=== PATIENT | female | born 1975 | race Two or more races ===

== ENCOUNTER 2023-03-10 10:15 | Emergency (ER) | payer OTHER, SELFPAY ==
[2023-03-10 10:38] VITALS: BP 135/78; PULSE 103; RESP 20; TEMP 36.4; O2SAT 99; BMI 34.3
--- NOTE | 2023-03-10 12:52 | ED.EXTPRO ---
HPI - Extremity Problem General Chief complaint: Extremity Injury, Upper Stated complaint: Flu Like Symptoms Time Seen by Provider: 03/10/23 11:59 Source: patient and family Mode of arrival: ambulatory Limitations: no limitations History of Present Illness HPI Narrative: ?This is a 47-year-old female history of obesity presenting to the emergency department with complaints of fatigue, malaise, sore throat, myalgias, nausea, diffuse headache without visual disturbances, trauma, dizziness, dry cough x4 days progressively worsening.? Significant other sick with similar symptoms.? Denies chest pain, shortness of breath, vomiting, diarrhea, abdominal pain, weakness, dizziness at this time. Related Data Previous Rx's Medication Instructions Recorded albuterol sulfate 90 mcg/actuation 2 inh inhalation Q4-6H PRN 03/10/23 breath activated powder inhaler shortness of breath or wheezing #1 ea prednisone 20 mg tablet 40 mg (2 x 20 mg) PO DAILY 5 days 03/10/23 #10 tabs Allergies Allergy/AdvReac Type Severity Reaction Status Date / Time shellfish derived Allergy Anaphylaxis Verified 03/10/23 10:40 Review of Systems Review of Systems: Yes all other systems are reviewed and are negative PMFSH Past Medical History Attestation statement: The following information was validated with the patient. Source: old records reviewed and nursing notes reviewed Onset Date is defined in the Problem List Problems that require an onset date and time if occurred within 24 hrs of arrival to the ED Aortic Dissection and Rupture; Neurologic impairment; Cardiopulmonary Arrest; Endotracheal Intubation; Insertion or Replacement of Mechanical Circulatory Assist Device Social History Social History Advance Directives: No Advance Directives Information Provided: No Physical Exam Vital Signs: Vital Signs: Last Vital Signs Temp 97.5 F 03/10/23 10:38 Pulse 103 H 03/10/23 10:38 Resp 20 03/10/23 10:38 BP 135/78 03/10/23 10:38 Pulse Ox 99 03/10/23 10:38 O2 Del Method Room Air 03/10/23 10:38 BMI result Body Mass Index 34.3 vss Appearance: Alert.? Oriented X3.? No acute distress.? Head: Normocephalic, atraumatic, no step-offs or deformities Eyes: Pupils equal, round and reactive to light.? ENT: Pharynx normal.? Neck: Normal inspection.? Neck supple.? CVS: Normal heart rate and rhythm.? Pulses normal.? Respiratory: No respiratory distress.? Breath sounds normal.? Abdomen: Soft and nontender.? Skin: Skin warm and dry.? Normal skin color.? Normal skin turgor.? Extremities: No lower extremity edema.? No calf ttp. 5/5 strength to bilateral upper and lower extremities Neuro: Oriented X 3.? No motor deficit.? No sensory deficit. CN 2-12 intact Course Reevaluation(s) Reevaluation #1: Patient negative for flu versus COVID versus RSV however his symptoms highly suggestive of viral illness. Will discharge with supportive measures, prednisone and albuterol. Educated patient on diagnosis and treatment plan, answered all question, patient verbalizes understanding. At this time patient will be discharged home, advised to return with new or worsening symptoms. Educated on worrisome signs and symptoms and when to return. At this time I feel comfortable discharge home. Time: 12:54 Medical Decision Making Medical Decision Making [facility] Narrative: 47-year-old female presents with viral symptoms for the past 4 days. ??Physical examination benign ?This is likely viral flu versus COVID versus RSV versus bronchitis.? Unlikely pulmonary embolism, pneumonia, ACS, retropharyngeal abscess, peritonsillar abscess, epiglottitis, intracranial hemorrhage, stroke, posterior stroke, meningitis or encephalitis.? No signs of acute respiratory distress ?Plan viral testing Differential Diagnosis Differential Diagnoses: The differential diagnosis associated with the presentation includes ?This is likely viral flu versus COVID versus RSV versus bronchitis.? Unlikely pulmonary embolism, pneumonia, ACS, retropharyngeal abscess, peritonsillar abscess, epiglottitis, intracranial hemorrhage, stroke, posterior stroke, meningitis or encephalitis.? No signs of acute respiratory distress Admission/Observation Consideration of admission/observation: Escalation of care including admission/observation considered [facility] Lab Data [facility] Lab Attestation statement: I reviewed the patient's lab results. Labs: Lab Results 03/10/23 Range/Units 11:15 Influenza Type A (PCR) NEGATIVE (Negative) Influenza Type B (PCR) NEGATIVE (Negative) RSV RNA Qual (PCR) NEGATIVE (Negative) SARS-CoV-2 RNA (RT-PCR) NEGATIVE (Negative) Independent Interpretation I performed an independent interpretation of an: Plain X-Ray (XR/XR chest 2V IMPRESSION: No acute cardiopulmonary disease. ) Radiology Impression Discussion of test interpretation with radiology: I have reviewed the radiologist's reading. Tests considered The following testing was considered but not selected: I do not suspect metabolic derangements no need for labs patient eating and drinking Discharge Plan Discharge Clinical Impression: Viral illness Patient Disposition: Home, Self-Care Instructions: Viral Syndrome (ED) Additional Instructions: Take your medications as prescribed. If you were prescribed antibiotics today, it is important that you take your medication to their entirety, do not skip any doses, do not finish them early. Follow-up with your primary care provider this week. Return to the emergency department with new or worsening symptoms. Such as fevers, chills, chest pain, shortness of breath, nausea, vomiting, dizziness, headache, vision changes, lethargy In case of emergency call 911 Prescriptions: New albuterol sulfate 90 mcg/actuation aerosol powdr breath activated 2 inh inhalation Q4-6H PRN (Reason: shortness of breath or wheezing) Qty: 1 0RF prednisone 20 mg tablet 40 mg PO DAILY 5 Days Qty: 10 0RF Referrals: Physician,Unknown J [Primary Care Provider] - 2 days Stand Alone Forms: Work/School Release
[2023-03-10 12:57] VITALS: BP 129/76; PULSE 83; RESP 18; TEMP 37.6; O2SAT 96
== END 2023-03-10 13:06 | disposition home or self-care (01) ==
PROVIDERS: Emergency Provider Emergency Medicine
DX: B34.9 Viral infection, unspecified (principal); J02.9 Acute pharyngitis, unspecified; R51.9 Headache, unspecified; H53.9 Unspecified visual disturbance; R05.9 Cough, unspecified; R42 Dizziness and giddiness; Z20.822 Contact with and (suspected) exposure to COVID-19; Z20.828 Contact with and (suspected) exposure to other viral communicable diseases
CPT/HCPCS: 0241U; 71046; 87651; 99283

== ENCOUNTER 2023-04-29 16:29 | Emergency (ER) | payer OTHER, SELFPAY ==
[2023-04-29 16:40] VITALS: BP 165/94; PULSE 86; RESP 18; TEMP 36.7; O2SAT 96; BMI 34.8
--- NOTE | 2023-04-29 18:02 | ED.ALLEREA ---
HPI - Allergic Reaction General Chief complaint: Allergic Reaction Stated complaint: itching over body allegries, asthma,sob Time Seen by Provider: 04/29/23 18:12 Source: patient, family (Family acting as machine clerical verifier), RN notes reviewed and old records reviewed Mode of arrival: ambulatory Limitations: language barrier History of Present Illness HPI narrative: 47-year-old female presents for evaluation of itchy sensation over her entire body. She reports her symptoms started 2 days ago. She mostly complains of itchy eyes right greater than left. Patient complains of cough, congestion, nausea and diarrhea Denies any fevers or chills She thinks she may be having allergic reaction and complains of a dry sensation in her throat She took Benadryl at 1:00 p.m. today without any improvement Denies any other sick contacts Related Data Previous Rx's Medication Instructions Recorded albuterol sulfate 90 mcg/actuation 2 inh inhalation Q4-6H PRN 03/10/23 breath activated powder inhaler shortness of breath or wheezing #1 ea prednisone 20 mg tablet 40 mg (2 x 20 mg) PO DAILY 5 days 03/10/23 #10 tabs prednisone 20 mg tablet 40 mg (2 x 20 mg) PO DAILY #10 tabs 04/29/23 tobramycin 0.3 % eye drops 2 drp ophthalmic-Right Q4H 5 days 04/29/23 #5 mL Allergies Allergy/AdvReac Type Severity Reaction Status Date / Time shellfish derived Allergy Anaphylaxis Verified 04/29/23 16:39 Review of Systems Constitutional: Constitutional: Denies body ache(s), Denies chills, Denies fever(s), Denies headache(s) and Reports malaise Eyes: Eyes: Reports dry eyes and Reports itchy eyes ENT: Denies headache(s), Reports nasal congestion and Reports nasal discharge Cardiovascular: Cardiovascular: Denies chest pain and Denies dyspnea Respiratory: Respiratory: Reports cough and Denies dyspnea Gastrointestinal: Gastrointestinal: Denies abdominal pain, Denies melena, Denies hematochezia, Reports diarrhea, Reports nausea and Denies vomiting Musculoskeletal: Musculoskeletal: Denies back pain Integumentary/Breasts: Skin/Breast: Reports pruritus, Denies erythema and Denies rash Neurologic: Denies headache(s) Psychiatric: Psychiatric: Denies panic attacks Allergic/Immunologic: Allergic/Immunologic: Reports itchy eyes PMFSH Social History Social History Advance Directives: No Advance Directives Information Provided: No Physical Exam ED Vital Signs: Vital Signs - 24 hr 04/29/23 16:40 04/29/23 18:23 Temperature 98.1 F Pulse Rate 86 97 Respiratory Rate 18 20 Blood Pressure 165/94 H Pulse Oximetry 96 Oxygen Delivery Method Room Air BMI result Body Mass Index 34.8 Const General: healthy appearing, comfortable, no acute distress, alert and awake Nutritional Appearance: well nourished Orientation/consciousness: patient oriented x3 HENMT Head: Yes normocephalic and Yes atraumatic Throat: Yes posterior oropharynx normal Eyes Other: Mild right-sided conjunctival injection, no obvious foreign body Eyelids: Yes eyelids normal Corneas: corneas normal Pupils: Equal, round and reactive pupils present EOM: EOMs intact bilaterally Neck Neck: Yes full ROM Resp Other: Slightly diminished, but otherwise clear to auscultation Effort & Inspection: normal respiratory effort, able to speak in complete sentences, no audible wheezes and not labored Auscultation: clear to auscultation bilaterally GI Inspection: No distended Palpation (GI): Soft to palpation, not firm, nontender, no guarding and not rigid Skin General skin exam: no rashes or lesions noted and elasticity normal Neuro General: patient oriented x3 Cranial nerves: Yes Equal, round and reactive pupils present and Yes Bilaterally intact EOM present Cognition (Neuro): normal cognition Extrem Other: Moving all extremities well without any obvious deformities Course Course Course Narrative: This is a rapid medical exam. Deferred additional HPI, ROS, PE to primary provider. 47 yo female here with generalized body itching, scratchy throat. difficulty breathing with history of asthma and food allergies. Unknown exposure. ?sick. Will send viral testing, strep testing. Will give nebulizer, predisone and benadryl VSS Reevaluation(s) Reevaluation #1: Patient's viral swab is negative, she is negative for strep throat. Plan to discharge the patient with prednisone and continued Benadryl. Her vital signs have remained stable, there is no evidence of allergic reaction or anaphylaxis Time: 19:48 Medications Administered Discontinued Medications Generic Name Dose Route Start Last Admin Trade Name Freq PRN Reason Stop Dose Admin Albuterol Sulfate 2.5 mg/ 0 mg 04/29/23 18:19 04/29/23 18:22 Albuterol/Ipratropium 3 ml INHALE 04/29/23 18:20 2.5 dose ONCE ONE Administration Diphenhydramine HCl 50 mg 04/29/23 18:00 04/29/23 18:14 Diphenhydramine Hcl 25 Mg Capsule PO 04/29/23 18:01 50 mg ONCE ONE Administration Prednisone 60 mg 04/29/23 18:00 04/29/23 18:14 Prednisone 20 Mg Tablet PO 04/29/23 18:01 60 mg ONCE ONE Administration Medical Decision Making Medical Decision Making [facility] Narrative: 47-year-old female presents for evaluation of multiple complaints. She believes she is having allergic reaction. She has no edema or urticaria to suggest allergic reaction. She does have redness to the right eye with watery discharge can consistent with conjunctivitis but maybe viral conjunctivitis. Plan for viral swabs. She was given Benadryl and prednisone in triage. She was also given a treatment of 5 mg albuterol. I have a low suspicion for pneumonia Differential Diagnosis Differential Diagnoses: The differential diagnosis associated with the presentation includes Viral syndrome COVID-19 Influenza Allergic reaction less likely Sinus infection Conjunctivitis Asthma exacerbation Lab Data Labs: Lab Results 04/29/23 Range/Units 19:01 Influenza Type A (PCR) NEGATIVE (Negative) Influenza Type B (PCR) NEGATIVE (Negative) RSV RNA Qual (PCR) NEGATIVE (Negative) SARS-CoV-2 RNA (RT-PCR) NEGATIVE (Negative) S. pyogenes GrpA CASPER Negative (Negative) Discharge Plan Discharge Clinical Impression: Acute upper respiratory infection, Acute conjunctivitis, right eye Patient Disposition: Home, Self-Care Instructions: Upper Respiratory Infection (ED) Additional Instructions: You tested negative for the flu, COVID-19, RSV. Use tobramycin eye drops as directed to the right eye for conjunctivitis Take prednisone 40 mg daily for the next 5 days Continue using Benadryl 25 mg every 4-6 hours as needed for itching Return for new or worsening symptoms Prescriptions: New prednisone 20 mg tablet 40 mg PO DAILY Qty: 10 0RF tobramycin 0.3 % drops 2 drp ophthalmic-Right Q4H 5 Days Qty: 5 0RF No Action albuterol sulfate 90 mcg/actuation aerosol powdr breath activated 2 inh inhalation Q4-6H PRN (Reason: shortness of breath or wheezing) Qty: 1 0RF prednisone 20 mg tablet 40 mg PO DAILY 5 Days Qty: 10 0RF
[2023-04-29] MEDS: diphenhydrAMINE HCL 25 MG CAPSULE 50 MG PO (18:14)
[2023-04-29] MEDS: predniSONE 20 MG TABLET 60 MG PO (18:14)
[2023-04-29] MEDS: Albuterol Sulfate 2.5 MG, Albuterol/Iprat 2.5/0.5MG 3 ML 3 ML INHALE (18:22)
[2023-04-29 18:23] VITALS: PULSE 97; RESP 20; O2SAT 98
[2023-04-29 19:18] LABS: IDNOW Serial# 08D9AD1C; Strep A Nucleic Acid Negative (Negative)
[2023-04-29 19:45] LABS: Influenza A PCR NEGATIVE (Negative); Influenza B PCR NEGATIVE (Negative); Resp Syncy Virus RNA Qual PCR NEGATIVE (Negative); SARS COV2 PCR INHOUSE NEGATIVE (Negative)
[2023-04-29 20:17] VITALS: BP 158/86; PULSE 88; RESP 20; TEMP 36.9; O2SAT 97
== END 2023-04-29 20:45 | disposition home or self-care (01) ==
PROVIDERS: Nurse Practitioner Family; Emergency Provider Internal Medicine; PCP Nurse Practitioner Family
DX: J06.9 Acute upper respiratory infection, unspecified (principal); H10.31 Unspecified acute conjunctivitis, right eye; L50.0 Allergic urticaria; R06.02 Shortness of breath; R11.2 Nausea with vomiting, unspecified; R05.9 Cough, unspecified; Z79.899 Other long term (current) drug therapy; Z20.822 Contact with and (suspected) exposure to COVID-19; Z11.52 Encounter for screening for COVID-19
CPT/HCPCS: 0241U; 87651; 94640; 99283; 99284

== ENCOUNTER 2024-10-27 15:57 | Inpatient (IN) | payer OTHER, SELFPAY ==
--- NOTE | 2024-10-27 | ECG_ITS ---
Test Reason : HTN Blood Pressure : */* mmHG Vent. Rate : 69 BPM Atrial Rate : 69 BPM P-R Int : 154 ms QRS Dur : 80 ms QT Int : 424 ms P-R-T Axes : 49 42 53 degrees QTcB Int : 454 ms Normal sinus rhythm Nonspecific ST and T wave abnormality Abnormal ECG No previous ECGs available Referred By: Charissa Napoles Electronically Signed By: EKATERINA GARBER
--- OUTSIDE RECORDS SUMMARY | 2024-10-27 16:03 | XMS_ITS | Clinical Summary ---
Author Organization [facility] Address [address] [place] [address] Care Team Providers Care Sheet Mill Supervisor Name Role Phone DarenPayton bales CHILD SUPPORT AGENT Primary Care Provider [phone] Source Comments PLEASE NOTE, if this patient is a minor, it may be UNLAWFUL to discuss sensitive information that is contained in these records (such as FAMILY PLANNING, MENTAL HEALTH or SUBSTANCE ABUSE) with the minor patient's parent or other person without the patient's specific authorization.LAZARUSIN Allergies Active Allergy Reactions Criticality Noted Date Comments Crab SOB High 08/21/2022 Medications traZODone (DESYREL) 50 mg tabletIndication s:Schizophrenia, unspecified type (CMS & HHS-HCC) TAKE 1 TABLET BY MOUTH EVERYDAY AT BEDTIME 3 Active risperiDONE (RISPERDAL) 0.5 mg tabletIndication s:Schizophrenia, unspecified type (CMS & HHS-HCC) Take 0.5 mg by mouth 2 (two) times daily 3 Active clonazePAM (KLONOPIN) 1 mg tabletIndication s:Schizophrenia, unspecified type (CMS & HHS-HCC) TAKE 1 TABLET BY MOUTH TWICE A DAY NEEDED 3 Active FLUoxetine (PROZAC) 10 mg capsuleIndicatio ns:Schizophrenia , unspecified type (CMS & HHS-HCC) Take 10 mg by mouth once daily 3 Active cetirizine (ZYRTEC) 10 mg tabletIndication s:Non-seasonal allergic rhinitis, unspecified trigger Take 1 Tablet by mouth once daily For allergies 90 Tablet 1 3 Active VENTOLIN HFA 90 mcg/actuation inhaler INHALE 2 PUFFS EVERY 4 HOURS NEEDED FOR SHORTNESS OF BREATH 3 Active fluticasone (FLONASE) 50 mcg/actuation nasal sprayIndications :Non-seasonal allergic rhinitis, unspecified trigger SPRAY 1 SPRAY INTO EACH NOSTRIL TWICE A DAY 48 mL 3 Active Active Problems Problem Noted Date Diagnosed Date Hx of hysterectomy 09/08/2022 Overview (09/08/2022): Hysterectomy: had mass at uterus, so had hysterectomy. Still has ovaries. Schizophrenia (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 Genetic problem. 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 Her children also has the same problems Uncomplicated asthma ([facility]) 09/08/2022 Immune to hepatitis B 09/08/2022 Family History Medical History Relation Name Comments MVA Father in MVA acc ident mental issues Father Colon Cancer Maternal Aunt Colon Cancer Maternal Grandmother Schizophrenia Maternal Uncle Diabetes Mother Malig Hypertension Mother Other (See Comments) Mother periton eal cancer Thyroid Disease Mother Relation Name Status Comments Father Maternal Aunt Maternal Grandmother Maternal Uncle Mother Alive Social History Tobacco Use Types Packs/Day Years Used Date Smoking Tobacco: Never Passive Smoke Exposure: Never Smokeless Tobacco: Never Alcohol Use Standard Drinks/Week Comments Yes 0 (1 standard drink = 0.6 oz pur e alcohol) social Social Connections Answer Date Recorded Connectedness 0 11/18/2023 Financial Resource Strain Answer Date R ecorded Financial Resource Strain 0 2022 Stress Answer Date Recorded Stress 0 05/14/2022 Physical Activity Answer Date Recorded Physical Activity 0 05/14/2022 Food Insecurity Answer Date Recorded Food 0 12/02/2023 Transportation Needs Answer Date Record ed Transportation 0 05/14/2022 Housing Stability Answer Date Recorded Housing 0 05/14/2022 Safety and Environment Answer Date Feng rded Safety 0 05/14/2022 Utilities Answer Date Recorded Utilities 0 05/14/2022 Employment Answer Date Recorded Stress 0 11/18/2023 Comments No Sex and Gender Information Value Date Recorded Sex Assigned at Female 08/21/2022 12:24 PM PDT Legal Sex Female 11:02 AM PST Gender Identity Female 08/21/2022 12:24 PM PDT Sexual Orientation Straight 08/21/2022 12 :24 PM PDT Last Filed Vital Signs Vital Sign Reading Time Taken Comments Blood Pressure 98/70 08/21/2022 3:24 PM EDT Pulse 90 08/21/2022 3:24 PM EDT Temperature 36.5 C (97.7 F) 08/21/2022 3:24 PM EDT Respiratory Rate 16 08/21/2022 3:24 PM EDT Oxygen Saturation 97% 08/21/2022 3:24 PM EDT Inhaled Oxygen Concentration - - Weight 78 kg (171 lb 14.4 oz) 08/21/2022 3:24 PM EDT Height 159.5 cm (5' 2.8 ) 08/21/2022 3:24 PM EDT Body Mass Index 30.65 08/21/2022 3:24 PM EDT Plan of Treatment Health Maintenance Due Date Last Done Comments Anxiety Screening 1974 Tobacco Screening 1974 Imm-Pneumococcal 50+ (1 of 2 - PCV) 1993 Breast Cancer Screening (Mammogram) 2014 CT Colonography 08/01/2019 Colonoscopy 08/01/2019 Colorectal Cancer Screening 08/01/2019 FIT/gFOBT 08/01/2019 Fecal DNA 08/01/2019 Flexible Sigmoidoscopy 08/01/2019 Depression Monitoring 11/21/2022 08/21/2022 Imm-DTaP/Tdap/Td (1 - Tdap) 03/04/2023 03/03/2023 Hypertension Screening (#1) 08/21/2023 Diabetes Screening 08/26/2023 08/25/2022, 08/25/2022 Lipid Screening 08/26/2023 08/25/2022 Ipp-IKFYB-95 (2 - season) 2023 023 Alcohol and Drug Screen 03/08/2024 08/21/2022 Imm-Zoster, Recombinant (1 of 2) 2024 Imm-Influenza (#1) 2024 01/09/2023 HIV Screening Completed 08/25/2022 Hepatitis C Screening Completed 08/25/2022 Imm-Hepatitis B Discontinued Procedures Procedure Name Priority Date/Time Associated Diagnosis Comments HIV 1/2 AG & AB W/RFLX (4TH GEN) Routine 08/25/2022 8:51 AM EDT Moderate persistent asthma with status asthmaticus Schizophrenia, unspecified type (HCC-CMS) Current moderate episode of major depressive disorder without prior episode (HCC-CMS) PCD (primary ciliary dyskinesia) Non-seasonal allergic rhinitis, unspecified trigger Encounter for laboratory test HEPATITIS C AB W/RFLX HCV RNA, QT, RT PCR Routine 08/25/2022 8:51 AM EDT Moderate persistent asthma with status asthmaticus Schizophrenia, unspecified type (HCC-CMS) Current moderate episode of major depressive disorder without prior episode (HCC-CMS) PCD (primary ciliary dyskinesia) Non-seasonal allergic rhinitis, unspecified trigger Encounter for laboratory test COMPREHENSIVE METABOLIC PANEL Routine 08/25/2022 8:51 AM EDT Moderate persistent asthma with status asthmaticus Schizophrenia, unspecified type (HCC-CMS) Current moderate episode of major depressive disorder without prior episode (HCC-CMS) PCD (primary ciliary dyskinesia) Non-seasonal allergic rhinitis, unspecified trigger Encounter for laboratory test LIPID PANEL Routine 08/25/2022 8:51 AM EDT Moderate persistent asthma with status asthmaticus Schizophrenia, unspecified type (HCC-CMS) Current moderate episode of major depressive disorder without prior episode (HCC-CMS) PCD (primary ciliary dyskinesia) Non-seasonal allergic rhinitis, unspecified trigger Encounter for laboratory test from Last 3 Months or Most Recently Relevant to Health Maintenance Results * HEPATITIS C AB W/RFLX HCV RNA, QT, RT PCR (08/25/2022 8:51 AM EDT) HEPATITIS C ANTIBODY NON-REACT CORA NON-REACT CORA [facility] Comment: HCV antibody was non-reactive. There is no laboratory evidence of HCV infection. In most cases, no further action is required. However, if recent HCV exposure is suspected, a test for HCV RNA (test code 90512) is suggested. For additional information please refer to http://[employer] Power/faq/ZBS49d5 (This link is being provided for informational/ educational purposes only.) Blood Blood / Unknown 08/25/2022 8 :51 AM EDT 08/25/2022 8:54 AM EDT Narrative [facility] - 08/27/2022 5:01 PM EDT FASTING:YES Payton Holland CHILD SUPPORT AGENT LAB - BLOOD DRAW Edited Result - Final [facility] [address] [place] [id number], [facility] [address] [address] * HIV 1/2 AG & AB W/RFLX (4TH GEN) (08/25/2022 8:51 AM EDT) Pathologist [facility] HIV AG/AB, 4TH GEN NON-REAC TIVE NON-REAC TIVE [facility] Comment: HIV-1 antigen and HIV-1/HIV-2 antibodies were not detected. There is no laboratory evidence of HIV infection. PLEASE NOTE: This information has been disclosed to you from records whose confidentiality may be protected by state law. If your state requires such protection, then the state law prohibits you from making any further disclosure of the information without the specific written consent of the person to whom it pertains, or as otherwise permitted by law. A general authorization for the release of medical or other information is NOT sufficient for this purpose. For additional information please refer to http://[employer]blinkbox.Narr8/faq/HLQ071 (This link is being provided for informational/ educational purposes only.) The performance of this assay has not been clinically validated in patients less than 2 years old. Blood Blood / Unknown 08/25/2022 8 :51 AM EDT 08/25/2022 8:54 AM EDT Narrative [facility] - 08/27/2022 5:01 PM EDT FASTING:YES Payton Vencesroro [facility] LAB - BLOOD DRAW Final Result Performing Organization Address City/[facility]/ZIP Co de Phone Number [facility] [address] [address], [facility] [address] [address] * (ABNORMAL) LIPID PANEL (08/25/2022 8:51 AM EDT) [facility] Signature CHOLESTEROL, TOTAL 167 <200 mg/dL [facility] HDL CHOLESTEROL 39(L) > OR = 50 mg/dL [facility] TRIGLYCERIDES 215(H) <150 mg/dL [facility] Comment: If a non-fasting specimen was collected, consider repeat triglyceride testing on a fasting specimen if clinically indicated. Isaura et al. J. of Clin. Lipidol. 2015;9:129-169. LDL-CHOLESTEROL 97 99 mg/dL (calc) [facility] Comment: Reference range: <100 Desirable range <100 mg/dL for primary prevention; <70 mg/dL for patients with CHD or diabetic patients with > or = 2 CHD risk factors. LDL-C is now calculated using the Wally-John calculation, which is a validated novel method providing better accuracy than the Friedewald equation in the estimation of LDL-C. Wally SS et al. ALANNA. 2013;310(19): 3397-5179 (http://education.[employer]/faq/ZOI842) CHOL/HDLC RATIO 4.3 <5.0 (calc) [facility] NON-HDL CHOLESTEROL 128 <130 mg/dL (calc) [facility] Comment: For patients with diabetes plus 1 major ASCVD risk factor, treating to a non-HDL-C goal of <100 mg/dL (LDL-C of <70 mg/dL) is considered a therapeutic option. Blood Blood / Unknown 08/25/2022 8 :51 AM EDT 08/25/2022 8:54 AM EDT Narrative [facility] - 08/27/2022 5:01 PM EDT FASTING:YES Payton Mercedesnii [facility] - BLOOD DRAW Final Result [facility] [address] [address], [facility] [address] [place] [address] * COMPREHENSIVE METABOLIC PANEL (08/25/2022 8:51 AM EDT) GLUCOSE 90 65 - 99 mg/dL [facility] Comment: Fasting reference interval UREA NITROGEN (BUN) 7 7 - 25 mg/dL [facility] CREATININE (blood) 0.75 0.50 - 0.99 mg/dL [facility] EGFR 98 > OR = 60 mL/min/1 .73m2 [facility] Comment: The eGFR is based on the CKD-EPI 2020 equation. To calculate the new eGFR from a previous Creatinine or Cystatin C result, go to https://www.kidney.org/professionals/ kdoqi/gfr%5Fcalculator BUN/CREATININE RATIO NOT APPLICABLE [facility] SODIUM 139 135 - 146 mmol/L [facility] POTASSIUM 4.3 3.5 - 5.3 mmol/L [facility] CHLORIDE 104 98 - 110 mmol/L [facility] CARBON DIOXIDE 27 20 - 32 mmol/L [facility] CALCIUM 9.0 8.6 - 10.2 mg/dL [facility] PROTEIN, TOTAL 7.5 6.1 - 8.1 g/dL [facility] ALBUMIN 4.1 3.6 - 5.1 g/dL [facility] GLOBULIN 3.4 1.9 - 3.7 g/dL (calc) [facility] ALBUMIN/GLOBUL IN RATIO 1.2 1.0 - 2.5 (calc) [facility] BILIRUBIN, TOTAL 0.4 0.2 - 1.2 mg/dL [facility] ALKALINE PHOSPHATASE 58 31 - 125 U/L [facility] AST 17 10 - 35 U/L [facility] ALT 21 6 - 29 U/L [facility] Blood Blood / Unknown 08/25/2022 8 :51 AM EDT 08/25/2022 8:54 AM EDT Narrative [facility] - 08/27/2022 5:01 PM EDT FASTING:YES Payton Holland [facility] - BLOOD DRAW Edited Result - Final [facility] [address] [address], [facility] [address] [place] [address] from Last 3 Months or Most Recently Relevant to Health Maintenance Insurance [employer] Care Teams Sheet Mill Supervisor Relationship Specialty Start Date End Date Payton Holland FNP [address] [place] [id number] PCP - General Internal Medicine 05/11/22
--- OUTSIDE RECORDS SUMMARY | 2024-10-27 16:03 | XMS_ITS | Clinical Summary ---
Author Organization [facility] Address [address] [place] [address] Phone Care Team Providers Care Hospice Registered Nurse Name Role Phone Lorraine Michele NP Primary Care Provide r Social History Tobacco Use Types Packs/Day Years Used Date Smoking Tobacco: Never Assessed Comments Unknown Sex and Gender Information Value Date Recorded Sex Assigned at Not on file Legal Sex Female 2:05 PM EST Gender Identity Not on file Sexual Orientation Not on file Plan of Treatment Not on file Medical Devices Not on file Insurance [employer] [facility] [employer] Care Teams Hospice Registered Nurse Relationship Specialty Start Date End Date Lorraine Michele NP [address] [place] [phone] PCP - General Nurse Practitioner 03/23/23 Additional Source Comments The information contained in this document represents components of the legal health record. It is not the complete legal health record.[facility]
[2024-10-27 16:20] VITALS: BP 138/75; PULSE 68; RESP 16; TEMP 36.9; O2SAT 94
[2024-10-27 17:08] VITALS: BMI 36.1
--- NOTE | 2024-10-27 17:46 | PC.NURSE ---
Simona was admitted to [facility] at [address] [facility] ED on CV for treatment of schizoaffective disorder, ptsd and si. She is Bhutanese speaking only and is assessed with director medical economics. Precipitant of admission include discharge from [facility] and presented to [facility] ED for SI with plan to OD on prescribed medications. On arrival to the unit pt states she is no longer hearing voices or seeing things and is no longer having thoughts about harming self or others. She signed a 3 day notice stating, I need to be home by Wednesday. My new refrigerator is being delivered. Mood is better, I'm relaxed. Affect is broad. Appetite is good with no recent weight loss or gain. Sleep is good with medications: Focus is good throughout admission process. She denies substance Issues of any kind. Tox Screen is negative. Medical issues?include asthma, hx of left arm rotator cuff surgery, current right arm pain similar to pain she had prior to left arm surgery, hx hysterectomy, She reports current right arm pain and denies other current physical complaint. Safety Checks are q 15 minutes.
[2024-10-27 20:00] VITALS: BP 142/65; PULSE 70; RESP 18; TEMP 36.9; O2SAT 97
--- NOTE | 2024-10-27 20:57 | HO.PM.IMCN ---
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 Pt denies hx of smoking, alcohol use, marijuana use or illicit/IVD use. Pt states clearly that she is here to treat her schizphrenia, which does run in her family. Upon review of pt's medica chart, pt is having issues with stage 1 HTN. Labs are pending until AM. Patient is euvolemic on exam with a regular heart rate, afebrile with no shortness of breath at rest or with exertion. Patient denies any chest pain, abdominal pain, constipation or diarrhea. Review of Systems Review of Systems: Patient currently reports chronic pain in the left arm secondary to a rotator cuff repair in the past. Patient denies any chest pain, shortness of breath at rest or with exertion. Patient is not having any abdominal pain, constipation or diarrhea. Patient denies any edema in the lower extremities. Patient is not having any headache or visual changes. Patient denies any thyroid history. Yes all other systems are reviewed and are negative [facility] Medical History (Updated 10/27/24 @ 21:13 by GURMEET Verma) Allergic rhinitis Asthma Chronic pain of left upper extremity Obesity Cognitive capacity: Alert and orientated x3 Functional capacity: independent ambulation Patient : No Pertinent family history: Mother alive in her 70s with history of peritoneal cancer, currently has diabetes and hypertension Father: age 434 from a motor vehicle accident father had mental health issues Schizophrenia runs in her family Surgical History S/P rotator cuff repair H/O: hysterectomy Social History Household Members: None Housing: Apartment Do you presently have visiting nurse or other home services: No Patient Tobacco Use Status: Never used Tobacco Have you been hit, kicked, punched, or otherwise hurt by someone within the past year? If so, by whom?: No Do you feel safe in your current relationship?: No Current Relationship Is there a partner from a previous relationship who is making you feel unsafe now?: No Are you made to feel afraid or neglected: No Advance Directives: No Advance Directives Information Provided: No Do you have a plan to hurt others: No Plan Recently lost weight without trying: No Eating poorly because of decreased appetite: No Nutrition Risks: No Nutritional Risk Patient : No : No Poor oral hygiene: No Ebola Risk: Travel/Contact With Anyone From Affected Area/s: No Has Patient Experienced Ebola Symptoms: No Meds Allergies Allergy/AdvReac Type Severity Reaction Status Date / Time shellfish derived Allergy Anaphylaxis Verified 04/29/23 16:39 Active Medications: Current Medications Acetaminophen (Acetaminophen 325 Mg Tablet) 650 mg PO Q6H PRN PRN Reason: Headache/Pain, Scale 1-10 Al Hydroxide/Mg Hydroxide (Magnesium Hydrox/Alum Hydrox 30 Ml Oral.Susp) 30 ml PO Q6H PRN PRN Reason: Heartburn/Nausea Albuterol Sulfate (Albuterol Sulfate 90 Mcg 8 Gm Inhaler) 2 puff INHALE Q4H PRN PRN Reason: shortness of breath or wheezing Albuterol/Ipratropium (Albuterol/Iprat 2.5/0.5mg 3 Ml Ampul.Neb) 3 ml INHALE RQ4H WHILE AWAKE PRN PRN Reason: Shortness of Breath/Wheezing Cariprazine (Cariprazine Hcl 1.5 Mg Capsule) 1.5 mg PO DAILY MANJULA Clonazepam (Clonazepam 1 Mg Tablet) 1 mg PO BID PRN PRN Reason: Anxiety Fluoxetine HCl (Fluoxetine Hcl 20 Mg Capsule) 40 mg PO DAILY MANJULA Fluticasone/Vilanterol (Fluticasone/Vilanterol 200/25 Blst.W.Dev) 2 puff INHALE RDAILY MANJULA Hydroxyzine HCl (Hydroxyzine Hcl 25 Mg Tablet) 25 mg PO Q6H PRN PRN Reason: mild anxiety Magnesium Hydroxide (Milk Of Magnesia 30 Ml Oral.Susp) 30 ml PO DAILY PRN PRN Reason: Constipation Montelukast Sodium (Montelukast Sodium 10 Mg Tablet) 10 mg PO BEDTIME MANJULA Nicotine (Nicotine 21 Mg Patch.Td24) 21 mg TRANSDERMA DAILY MANJULA Nicotine Polacrilex (Nicotine Polacrilex 2 Mg Gum) 4 mg BUCCAL Q2H PRN PRN Reason: Nicotine Cravings Prednisone (Prednisone 20 Mg Tablet) 40 mg PO DAILY PRN PRN Reason: Wheezing Trazodone HCl (Trazodone Hcl 50 Mg Tablet) 50 mg PO BEDTIME MANJULA Zolpidem Tartrate (Zolpidem Tartrate 5 Mg Tablet) 5 mg PO BEDTIME PRN PRN Reason: Insomnia Home Medications ?Medication ?Instructions ?Recorded ?Confirmed ?Last Taken ?Type budesonide-formoterol HFA 160 2 puff inhalation BID 10/27/24 10/27/24 10/26/24 21:00 History mcg-4.5 mcg/actuation aerosol inhaler (Symbicort) cariprazine 1.5 mg capsule 1.5 mg PO DAILY 10/27/24 10/27/24 10/27/24 09:00 History (Boni) clonazepam 1 mg tablet 1 mg PO BID PRN Anxiety 10/27/24 10/27/24 10/27/24 09:00 History fluoxetine 40 mg capsule 40 mg PO DAILY 10/27/24 10/27/24 10/27/24 09:00 History montelukast 10 mg tablet 10 mg PO BEDTIME 10/27/24 10/27/24 10/26/24 21:00 History prednisone 20 mg tablet 40 mg PO DAILY PRN Wheezing 10/27/24 10/27/24 Unknown History trazodone 50 mg tablet 50 mg PO BEDTIME 10/27/24 10/27/24 10/26/24 21:00 History zolpidem 5 mg tablet 5 mg PO BEDTIME PRN Insomnia 10/27/24 10/27/24 10/26/24 21:00 History Physical Exam Vital Signs and Narrative: Vital Signs: Last Vital Signs Temp 98.4 F 10/27/24 20:00 Pulse 70 10/27/24 20:00 Resp 18 10/27/24 20:00 BP 142/65 H 10/27/24 20:00 Pulse Ox 97 10/27/24 20:00 O2 Del Method Room Air 10/27/24 20:00 BMI result Body Mass Index 36.1 Alert and orientated X3, able to give good history. Neuro: CN II-X11 intact, no deficits, visual acuity intact EYES: PERRLA, EOM intact, sclerae nonicteric, conjunctiva pink, glasses on ENT: hearing intact, no issues with swallowing, uvula midline, lips moist, nares patent no epistaxis, dentition in good repair Cardiac: S1 S2 RRR, no murmur, no JVD, no edema in Lower ext Pulmonary: lungs clear to auscultation B, no adventitious sounds heard Abdominal: BS active in all 4 quadrants, no guarding, tenderness, rebounding MSK: strength 5/5 upper and lower extremities : no CVA tenderness no bladder distension Extremities: no edema in lower extremities, PT and DP pulses palpable +2, patient has full range of motion in left upper extremity no crepitus heard on exam Psych: mood stable, judgement and insight good Skin: No new rashes or lesions Assessment and Plan (1) Hypertension: Qualifiers: Hypertension type: primary hypertension Qualified Code(s): I10 - Essential (primary) hypertension Status: Acute (2) Asthma: Qualifiers: Asthma complication type: uncomplicated Asthma persistence: intermittent Asthma severity: mild Qualified Code(s): J45.20 - Mild intermittent asthma, uncomplicated Status: Acute (3) Allergic rhinitis: Qualifiers: Allergic rhinitis seasonality: unspecified Allergic rhinitis trigger: unspecified Qualified Code(s): J30.9 - Allergic rhinitis, unspecified Status: Acute (4) Obesity: Qualifiers: Body mass index: BMI 36.0-36.9 Obesity classification: adult class 2 (BMI 35 - 39.9) Obesity type: unspecified obesity type Serious obesity comorbidity presence: without serious comorbidity Qualified Code(s): E66.812 - Obesity, class 2; Z68.36 - Body mass index [BMI] 36.0-36.9, adult Status: Acute (5) Chronic pain of left upper extremity: Status: Acute Plan Patient is a 49-year-old female, 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 Pt denies hx of smoking, alcohol use, marijuana use or illicit/IVD use. Pt states clearly that she is here to treat her schizphrenia, which does run in her family. After meeting with the patient patient has the following medical problems: Hypertension If a.m. labs show normal renal function, patient will need to start lisinopril 5 mg daily Low-salt diet Lipid panel pending EKG recommended for baseline noting patient's age Asthma Albuterol rescue inhaler ordered Duo nebs p.r.n. Symbicort Montelukast Recommend that patient not use prednisone PRN, more so as directed x3-5 days, order updated Allergic rhinitis Fluticasone ordered Claritin daily Obesity Nutritional consult recommended if patient is willing Chronic pain of left upper extremity status post left rotator cuff repair Tylenol PRN No indication at this time for x-ray as patient has full range of motion with no evidence of effusion or dislocation Recommend patient follow with orthopedist if pain continues or goes and resolved Hospitalist group will follow noting a.m. labs are pending. We will ensure that recommendations for treatment of hypertension are appropriate. We will also review EKG. We appreciate this consultation!
[2024-10-27] MEDS: Albuterol Sulfate 90 MCG 8 GM INHALER 2 PUFF INHALE (21:28)
[2024-10-28 07:20] VITALS: BP 148/85; PULSE 65; RESP 16; TEMP 36.9; O2SAT 97
--- NOTE | 2024-10-28 07:52 | P.HPPS_ITS ---
HPI Date of Service: 10/28/24 Chief Complaint: F29 Unspecified Schizophrenia Sources of Information: patient interviewed and chart reviewed Additional Sources of Information: Direct Admission from [facility] HPI Subjective Notes: Arreguin Warning, Conditional Voluntary and 3 Day Narrative: Nursing Admisison NOte 10/27/24: Simona was admitted to [facility] at 1615 from [facility] ED on CV for treatment of schizoaffective disorder, ptsd and si. She is Bengali speaking only and is assessed with medical professionals. Precipitant of admission include discharge [facility] and presented to [facility] ED for SI with plan to OD on prescribed medications. On arrival to the unit pt states she is no longer hearing voices or seeing things and is no longer having thoughts about harming self or others. She signed a 3 day notice stating, I need to be home by Wednesday. My new refrigerator is being delivered. Mood is better, I'm relaxed. Affect is broad. Appetite is good with no recent weight loss or gain. Sleep is good with medications: Focus is good throughout admission process. She denies substance Issues of any kind. Tox Screen is negative. Medical issues?include asthma, hx of left arm rotator cuff surgery, current right arm pain similar to pain she had prior to left arm surgery, hx hysterectomy, She reports current right arm pain and denies other current physical complaint. Safety Checks are q 15 minutes. 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 [facility] paperwork reviewed. Initial GI concerns. Then suicidal thoughts. Labs unremarkable. Tox screen negative. Medications included Ambien, trazodone, Prozac, Vraylar. Observed in the milieu getting on well with others and also on the telephone, eating etc.. Reports wanting help with depression as she had been feeling lonely and considered overdosing. Also reports he wants to be discharged soon and put in a 3 day notice as she reports she has a refrigerator arriving at her apartment on Wednesday. Aware 3 day notice would Wednesday. History is a little unclear but it does seem the patient was getting support from her daughter up until April or May of this year around medication adherence and living environment. Patient reports that changed in July and at times she can forget to take her medications. Endorses recently feeling lonely, no energy or motivation, some sleep problems, getting more paranoid and looking at the windows and she fears she may be in danger from neighbors, also hearing noises and voices saying that she is nobody and that she should kill herself and is about mother but reports he has not heard these in a number of days. Reports having suicidal thoughts of overdosing but also reports these have resolved since being in the hospital. Has a nurse practitioner at [facility]. Last inpatient episode was in May 2024. agreed to increase dose of Vraylar. Past Psychiatric History: Reports diagnosis of schizophrenia, depression and PTSD. Prescriber through [facility]. Medications include trazodone, zolpidem, Klonopin, Vraylar and Prozac. Last inpatient episode May 2024. 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 Pt denies hx of smoking, alcohol use, marijuana use or illicit/IVD use. Pt states clearly that she is here to treat her schizphrenia, which does run in her family. After meeting with the patient patient has the following medical problems: Hypertension If a.m. labs show normal renal function, patient will need to start lisinopril 5 mg daily Low-salt diet Lipid panel pending EKG recommended for baseline noting patient's age Asthma Albuterol rescue inhaler ordered Duo nebs p.r.n. Symbicort Montelukast Recommend that patient not use prednisone PRN, more so as directed x3-5 days, order updated Allergic rhinitis Fluticasone ordered Claritin daily Obesity Nutritional consult recommended if patient is willing Chronic pain of left upper extremity status post left rotator cuff repair Tylenol PRN No indication at this time for x-ray as patient has full range of motion with no evidence of effusion or dislocation Recommend patient follow with orthopedist if pain continues or goes and resolved Hospitalist group will follow noting a.m. labs are pending. We will ensure that recommendations for treatment of hypertension are appropriate. We will also review EKG. We appreciate this consultation [facility] Medical History (Updated 10/28/24 @ 15:49 by Lex Cervatnes MD) Allergic rhinitis Asthma Chronic pain of left upper extremity Obesity Surgical History S/P rotator cuff repair H/O: hysterectomy Social History: living alone in an apartment in [place]. Prior to this reports having support from her daughter and uses the term foster home, however patient does not appear to have any cognitive issues or impairments and no guardianship in place. since 2001. Four adult children, the youngest age 23. 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 Originally from [place]. Substance History: Denied Diagnostics Vital Signs (24Hr): Vital Signs - 24 hr 10/27/24 16:20 10/27/24 20:00 10/28/24 07:20 Temperature 98.4 F 98.4 F 98.4 F Pulse Rate 68 70 65 Respiratory Rate 16 18 16 Blood Pressure 138/75 142/65 H 148/85 H Pulse Oximetry 94 97 97 Oxygen Delivery Method Room Air Room Air Room Air BMI result Body Mass Index 36.1 Labs 10/28/24 07:48 10/28/24 07:48 Meds/Allergies Meds Home Medications ?Medication ?Instructions ?Recorded ?Confirmed ?Type budesonide-formoterol HFA 160 2 puff inhalation BID 10/27/24 History mcg-4.5 mcg/actuation aerosol inhaler (Symbicort) cariprazine 1.5 mg capsule 1.5 mg PO DAILY 10/27/24 History (Vraylar) clonazepam 1 mg tablet 1 mg PO BID PRN Anxiety 10/0710/27/24 History fluoxetine 40 mg capsule 40 mg PO DAILY 10/27/2410/07 History montelukast 10 mg tablet 10 mg PO BEDTIME 10/27/24 History prednisone 20 mg tablet 40 mg PO DAILY PRN Wheezing 10/27/24 10/27/24 History trazodone 50 mg tablet 50 mg PO BEDTIME 10/27/24 History zolpidem 5 mg tablet 5 mg PO BEDTIME PRN Insomnia 10/27/24 10/27/24 History Allergies Allergies Allergy/AdvReac Type Severity Reaction Status Date / Time shellfish derived Allergy Anaphylaxis Verified 04/29/23 16:39 Mental Status Exam Mental Status Exam Patient Appearance: Appropriate Patient Orientation: Person, Place, Time and Situation Level of Consciousness: Appropriate Patient Behavior: Guarded Mood Description: Calm and Withdrawn Affect Description: Apprehensive Patient Cognition Impaired: No Ability to Follow Directions: Fair Speech Pattern: Clear Hallucinations: Auditory ( denies any in a few days) Delusions: Paranoid Ideation ( reports feeling safe in the hospital ) Thought Process: Intact Thought Content: positive for Intact and positive for Suicidal Ideation (denies current) Depressive Symptoms: Increased Anxiety, Feelings of Worthlessness, Hopelessness, Unhappiness, Low Self Esteem and Loss of Energy Judgement: Fair Assessment & Plan Assessment & Plan (1) Schizophrenia: Status: Acute Code(s): F20.9 - Schizophrenia, unspecified (2) Depression: Status: Acute Code(s): F32.A - Depression, unspecified (3) PTSD (post-traumatic stress disorder): Status: Acute Code(s): F43.10 - Post-traumatic stress disorder, unspecified Plan patient presents with diagnosis of schizophrenia, depression and PTSD, unclear medication adherence and psychosocial stressors. Direct transfer from [facility]. He reported feeling depressed, lonely, paranoia and hallucinations increased with suicidal thoughts but these have since significantly improved since being in the hospital and submitted 3 day notice. Will maintain current regimen but will increase Vraylar to 3 mg. Patient educated on: diagnosis and medication risk/benefits Informed Consent: understands Reason for continued inpatient stay Substantial Risk for: harm to self Statement Statement: I have reviewed the history and physical and performed a pertinent examination on my patient. No changes have occurred unless specified. If the History and Physical was not performed prior to admission, the Hospitalist's service will be consulted for completing the admission physical. Time Spent With Patient Time: Total time managing care of this patient today ____ minutes.
[2024-10-28 08:04] LABS: MANUAL DIFF FLAG NO
[2024-10-28 08:10] LABS: Hematocrit 41.7 % (37.0-47.0); Hemoglobin 13.7 g/dl (12.0-16.0); Imm Gran Abs Auto 0.02 X10*3/uL (0.00-0.03); Imm Gran Pct Auto 0.2 % (0.0-0.4); Lymphocytes Absolute Auto 2.6 X10*3/uL (1.2-4.9); Mean Corpuscular HGB Conc 32.9 g/dl (31.0-35.0); Mean Corpuscular Hemoglobin 30.2 pg (27.0-33.0); Mean Corpuscular Volume 91.9 fL (80.0-98.0); NRBC Abs Auto 0.000 X10*3/uL (0.0-0.012); NRBC Pct Auto 0.0 /100WBC (0.0-0.2); Platelet Count 224 X10*3/uL (160-400); Red Blood Count 4.54 X10*6/uL (4.20-5.50); White Blood Count 8.0 X10*3/uL (4.8-10.8)
[2024-10-28 08:21] LABS: Hemoglobin A1C 149.5124 umol/L; Total Hemoglobin (HGBA1C) 3606.6251 umol/L
[2024-10-28 08:30] LABS: Alanine Aminotransferase 33 U/L (0-31); Albumin Level 4.3 g/dL (3.5-5.0); Alkaline Phosphatase 90 U/L (39-117); Anion Gap 12 (12-20); Aspartate Amino Transferase 27 U/L (5-31); Blood Urea Nitrogen 12 mg/dL (9-16); Calcium 9.4 mg/dL (8.4-10.2); Carbon Dioxide 29 mmol/L (22-29); Chloride 104 mmol/L (96-108); Cholesterol 164 mg/dL (<200); Creatinine Clr Calc Pharmacy 88.6; Estimated Glomerular Filt Rate > 60; HDL Cholesterol 40 mg/dL (>40); Potassium 4.2 mmol/L (3.3-5.1); Sodium 141 mmol/L (135-145); Total Protein 7.7 g/dL (6.5-8.0); Triglycerides 129 mg/dL (<150)
[2024-10-28] MEDS: Fluticasone/Vilanterol 200/25 BLST.W.DEV 2 PUFF INHALE (08:30)
[2024-10-28 20:00] VITALS: BP 115/65; PULSE 79; RESP 16; TEMP 36.5; O2SAT 96
[2024-10-28] MEDS: Albuterol Sulfate 90 MCG 8 GM INHALER 2 PUFF INHALE (21:34)
[2024-10-29 07:05] VITALS: BP 151/83; PULSE 85; RESP 16; TEMP 36.3; O2SAT 97
[2024-10-29] MEDS: Fluticasone/Vilanterol 200/25 BLST.W.DEV 2 PUFF INHALE (08:02)
--- NOTE | 2024-10-29 10:26 | HO.PSYCHPN ---
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 No management issues. Remains very eager for discharge (hopefully by Wednesday). Denies depression, psychosis, SI. Sleep ok. More isolative today. Main complaint was constipation- prefers pills/capsules rather than liquid treatments. Chronic arm pain. Tolerating Vraylar increase. Medication Compliance: Yes Side effects from medications: No Attending Groups: Intermittent Review of Systems Acute medical concerns: No Review of Systems Review of Systems nothing acute- chronic arm pain Mental Status Exam Mental Status Exam Patient Appearance: Appropriate Patient Orientation: Person, Place, Time and Situation Level of Consciousness: Appropriate Patient Behavior: Guarded (less) Mood Description: Calm and Withdrawn Affect Description: Apprehensive Patient Cognition Impaired: No Ability to Follow Directions: Fair Speech Pattern: Clear Hallucinations: None Delusions: Not Present Thought Process: Intact Thought Content: positive for Intact Judgement: Fair Diagnostics Vital Signs (24Hr): Vital Signs - 24 hr 10/28/24 20:00 10/29/24 07:05 Temperature 97.7 F 97.4 F Pulse Rate 79 85 Respiratory Rate 16 16 Blood Pressure 115/65 151/83 H Pulse Oximetry 96 97 Oxygen Delivery Method Room Air Room Air BMI result Body Mass Index 36.1 Labs 10/28/24 07:48 10/28/24 07:48 Labs: Laboratory Results - last 48 hr 10/28/24 07:48 WBC 8.0 RBC 4.54 Hgb 13.7 Hct 41.7 MCV 91.9 MCH 30.2 MCHC 32.9 RDW 13.5 Plt Count 224 MPV 10.5 Immature Gran % (Auto) 0.2 Neut % (Auto) 57.0 Lymph % (Auto) 31.8 [place] % (Auto) 5.9 Eos % (Auto) 4.7 H Baso % (Auto) 0.4 Lymph # (Auto) 2.6 [place] # (Auto) 0.5 Eos # (Auto) 0.4 Baso # (Auto) 0.0 Abs Immat Gran (auto) 0.02 Absolute Neuts (auto) 4.6 Absolute Nucleated RBC 0.000 Nucleated RBC % (auto) 0.0 Sodium 141 Potassium 4.2 Chloride 104 Carbon Dioxide 29 Anion Gap 12 BUN 12 Creatinine 0.73 Estim Creat Clear Calc 88.6 Estimated GFR > 60 Random Glucose 102 Estimat Average Glucose 123 Hemoglobin A1c % 5.9 Calcium 9.4 Total Bilirubin 0.3 AST 27 ALT 33 H Alkaline Phosphatase 90 Total Protein 7.7 Albumin 4.3 Triglycerides 129 Cholesterol 164 LDL Cholesterol, Calc 99 HDL Cholesterol 40 L Medications Medications Current Medications Acetaminophen (Acetaminophen 325 Mg Tablet) 650 mg PO Q6H PRN PRN Reason: Headache/Pain, Scale 1-10 Al Hydroxide/Mg Hydroxide (Magnesium Hydrox/Alum Hydrox 30 Ml Oral.Susp) 30 ml PO Q6H PRN PRN Reason: Heartburn/Nausea Albuterol Sulfate (Albuterol Sulfate 90 Mcg 8 Gm Inhaler) 2 puff INHALE Q4H PRN PRN Reason: shortness of breath or wheezing Last Admin: 10/28/24 21:34 Dose: 2 puff Albuterol/Ipratropium (Albuterol/Iprat 2.5/0.5mg 3 Ml Ampul.Neb) 3 ml INHALE RQ4H WHILE AWAKE PRN PRN Reason: Shortness of Breath/Wheezing Cariprazine (Cariprazine Hcl 3 Mg Capsule) 3 mg PO DAILY [facility] Last Admin: 10/29/24 08:01 Dose: 3 mg Clonazepam (Clonazepam 1 Mg Tablet) 1 mg PO BID PRN PRN Reason: Anxiety Last Admin: 10/29/24 08:01 Dose: 1 mg Fluoxetine HCl (Fluoxetine Hcl 20 Mg Capsule) 40 mg PO DAILY [facility] Last Admin: 10/29/24 08:01 Dose: 40 mg Fluticasone/Vilanterol (Fluticasone/Vilanterol 200/25 Blst.W.Dev) 2 puff INHALE RDAILY [facility] Last Admin: 10/29/24 08:02 Dose: 2 puff Hydroxyzine HCl (Hydroxyzine Hcl 25 Mg Tablet) 25 mg PO Q6H PRN PRN Reason: mild anxiety Loratadine (Loratadine 10 Mg Tablet) 10 mg PO DAILY [facility] Last Admin: 10/29/24 08:01 Dose: 10 mg Magnesium Hydroxide (Milk Of Magnesia 30 Ml Oral.Susp) 30 ml PO DAILY PRN PRN Reason: Constipation Montelukast Sodium (Montelukast Sodium 10 Mg Tablet) 10 mg PO BEDTIME [facility] Last Admin: 10/28/24 21:30 Dose: 10 mg Nicotine (Nicotine 21 Mg Patch.Td24) 21 mg TRANSDERMA DAILY [facility] Last Admin: 10/29/24 08:02 Dose: Not Given Nicotine Polacrilex (Nicotine Polacrilex 2 Mg Gum) 4 mg BUCCAL Q2H PRN PRN Reason: Nicotine Cravings Prednisone (Prednisone 20 Mg Tablet) 40 mg PO DAILY PRN PRN Reason: Wheezing Trazodone HCl (Trazodone Hcl 50 Mg Tablet) 50 mg PO BEDTIME [facility] Last Admin: 10/28/24 21:30 Dose: 50 mg Zolpidem Tartrate (Zolpidem Tartrate 5 Mg Tablet) 5 mg PO BEDTIME PRN PRN Reason: Insomnia Last Admin: 10/28/24 21:30 Dose: 5 mg Allergies Allergies Allergy/AdvReac Type Severity Reaction Status Date / Time shellfish derived Allergy Anaphylaxis Verified 04/29/23 16:39 Assessment & Plan Assessment & Plan (1) Schizophrenia: Status: Acute Code(s): F20.9 - Schizophrenia, unspecified (2) Depression: Status: Acute Code(s): F32.A - Depression, unspecified (3) PTSD (post-traumatic stress disorder): Status: Acute Code(s): F43.10 - Post-traumatic stress disorder, unspecified Plan patient presents with diagnosis of schizophrenia, depression and PTSD, unclear medication adherence and psychosocial stressors. Direct transfer from [facility]. He reported feeling depressed, lonely, paranoia and hallucinations increased with suicidal thoughts but these have since significantly improved since being in the hospital and submitted 3 day notice. Will maintain current regimen but will increase Vraylar to 3 mg. 10/29: no changes Reason for continued inpatient stay Substantial Risk for: rapid decompensation Time Spent With Patient Time: Total time managing care of this patient today ____ minutes.
[2024-10-29 19:45] VITALS: BP 146/68; PULSE 74; TEMP 36.7; O2SAT 96
[2024-10-30 07:45] VITALS: BP 113/56; PULSE 83; RESP 14; TEMP 36.7; O2SAT 94
[2024-10-30] MEDS: Albuterol Sulfate 90 MCG 8 GM INHALER 2 PUFF INHALE (09:35)
--- NOTE | 2024-10-30 09:58 | HO.PSYCHPN ---
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 Active on unit. social with Frisian speaking peers. Patient focused on discharge; 3 day notice up on 11/01/24. Patient reports feeling good ; pt stated, I feel like the meds are helping. I'm not feeling anxious or depressed . denies SI/HI/VH/AH. Continue current tx plan. Medication Compliance: Yes Side effects from medications: No Attending Groups: Intermittent Mental Status Exam Mental Status Exam Narrative: Pt is alert and oriented; behavior is cooperative and calm; dressed in casual attire; mood is described as good ; eye contact appropriate; Speech is normal rate, volume and not pressured; thought process is organized; Thought content is on discharge; denies SI/HI/VH/AH. Diagnostics Vital Signs (24Hr): Vital Signs - 24 hr 10/29/24 19:45 10/30/24 07:45 Temperature 98.1 F 98.0 F Pulse Rate 74 83 Respiratory Rate 14 Blood Pressure 146/68 H 113/56 L Pulse Oximetry 96 94 Oxygen Delivery Method Room Air Room Air BMI result Body Mass Index 36.1 Labs 10/28/24 07:48 10/28/24 07:48 Medications Medications Current Medications Acetaminophen (Acetaminophen 325 Mg Tablet) 650 mg PO Q6H PRN PRN Reason: Headache/Pain, Scale 1-10 Last Admin: 10/30/24 09:25 Dose: 650 mg Al Hydroxide/Mg Hydroxide (Magnesium Hydrox/Alum Hydrox 30 Ml Oral.Susp) 30 ml PO Q6H PRN PRN Reason: Heartburn/Nausea Albuterol Sulfate (Albuterol Sulfate 90 Mcg 8 Gm Inhaler) 2 puff INHALE Q4H PRN PRN Reason: shortness of breath or wheezing Last Admin: 10/30/24 09:35 Dose: 2 puff Albuterol/Ipratropium (Albuterol/Iprat 2.5/0.5mg 3 Ml Ampul.Neb) 3 ml INHALE RQ4H WHILE AWAKE PRN PRN Reason: Shortness of Breath/Wheezing Cariprazine (Cariprazine Hcl 3 Mg Capsule) 3 mg PO DAILY [facility] Last Admin: 10/30/24 08:17 Dose: 3 mg Clonazepam (Clonazepam 1 Mg Tablet) 1 mg PO BID PRN PRN Reason: Anxiety Last Admin: 10/29/24 08:01 Dose: 1 mg Docusate Sodium (Docusate Sodium 100 Mg Capsule) 100 mg PO BID [facility] Last Admin: 10/30/24 08:22 Dose: 100 mg Fluoxetine HCl (Fluoxetine Hcl 20 Mg Capsule) 40 mg PO DAILY [facility] Last Admin: 10/30/24 08:17 Dose: 40 mg Fluticasone/Vilanterol (Fluticasone/Vilanterol 200/25 Blst.W.Dev) 2 puff INHALE RDAILY [facility] Last Admin: 10/30/24 08:20 Dose: Not Given Hydroxyzine HCl (Hydroxyzine Hcl 25 Mg Tablet) 25 mg PO Q6H PRN PRN Reason: mild anxiety Loratadine (Loratadine 10 Mg Tablet) 10 mg PO DAILY [facility] Last Admin: 10/30/24 08:16 Dose: 10 mg Magnesium Hydroxide (Milk Of Magnesia 30 Ml Oral.Susp) 30 ml PO DAILY PRN PRN Reason: Constipation Montelukast Sodium (Montelukast Sodium 10 Mg Tablet) 10 mg PO BEDTIME [facility] Last Admin: 10/29/24 21:05 Dose: 10 mg Nicotine (Nicotine 21 Mg Patch.Td24) 21 mg TRANSDERMA DAILY [facility] Last Admin: 10/30/24 08:25 Dose: Not Given Nicotine Polacrilex (Nicotine Polacrilex 2 Mg Gum) 4 mg BUCCAL Q2H PRN PRN Reason: Nicotine Cravings Prednisone (Prednisone 20 Mg Tablet) 40 mg PO DAILY PRN PRN Reason: Wheezing Senna (Sennosides 8.6 Mg Tablet) 8.6 mg PO BEDTIME [facility] Last Admin: 10/29/24 21:30 Dose: Not Given Trazodone HCl (Trazodone Hcl 50 Mg Tablet) 50 mg PO BEDTIME [facility] Last Admin: 10/29/24 21:05 Dose: 50 mg Zolpidem Tartrate (Zolpidem Tartrate 5 Mg Tablet) 5 mg PO BEDTIME PRN PRN Reason: Insomnia Last Admin: 10/29/24 21:05 Dose: 5 mg Allergies Allergies Allergy/AdvReac Type Severity Reaction Status Date / Time shellfish derived Allergy Anaphylaxis Verified 04/29/23 16:39 Assessment & Plan Assessment & Plan (1) Schizophrenia: Status: Acute Code(s): F20.9 - Schizophrenia, unspecified (2) Depression: Status: Acute Code(s): F32.A - Depression, unspecified (3) PTSD (post-traumatic stress disorder): Status: Acute Code(s): F43.10 - Post-traumatic stress disorder, unspecified Plan patient presents with diagnosis of schizophrenia, depression and PTSD, unclear medication adherence and psychosocial stressors. Direct transfer from [facility]. He reported feeling depressed, lonely, paranoia and hallucinations increased with suicidal thoughts but these have since significantly improved since being in the hospital and submitted 3 day notice. Will maintain current regimen but will increase Vraylar to 3 mg. 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 Active on unit. social with Frisian speaking peers. Patient focused on discharge; 3 day notice up on 11/01/24. Patient reports feeling good ; pt stated, I feel like the meds are helping. I'm not feeling anxious or depressed . denies SI/HI/VH/AH. Continue current tx plan. Patient educated on: diagnosis and medication risk/benefits Reason for continued inpatient stay Substantial Risk for: med/psych decompensation Time Spent With Patient Time: Total time managing care of this patient today _20___ minutes.
[2024-10-30] MEDS: guaiFENesin LA 600 MG TAB.ER.12H PO (18:55)
[2024-10-30 20:28] VITALS: BP 127/76; PULSE 74; RESP 16; TEMP 36.4; O2SAT 97
[2024-10-31 07:56] VITALS: BP 124/75; PULSE 87; RESP 20; TEMP 36.7; O2SAT 98
[2024-10-31] MEDS: Fluticasone/Vilanterol 200/25 BLST.W.DEV 2 PUFF INHALE (08:11)
--- NOTE | 2024-10-31 09:29 | HO.PSYCHPN ---
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 social with Peruvian speaking peers. Patient continues to report feeling good ; focused on returning home. She reports sleeping well. denies SI/HI/VH/AH. 3 day notice up on 11/01/24. Patient reports she plans on following up with outpatient providers. Medication Compliance: Yes Side effects from medications: No Attending Groups: Yes Mental Status Exam Mental Status Exam Narrative: Pt is alert and oriented; behavior is cooperative and calm; dressed in casual attire; mood is described as good ; eye contact appropriate; Speech is normal rate, volume and not pressured; thought process is organized; Thought content is on discharge; denies SI/HI/VH/AH. Diagnostics Vital Signs (24Hr): Vital Signs - 24 hr 10/30/24 20:28 10/31/24 07:56 Temperature 97.5 F 98.1 F Pulse Rate 74 87 Respiratory Rate 16 20 Blood Pressure 127/76 124/75 Pulse Oximetry 97 98 Oxygen Delivery Method Room Air Room Air BMI result Body Mass Index 36.1 Labs 10/28/24 07:48 10/28/24 07:48 Medications Medications Current Medications Acetaminophen (Acetaminophen 325 Mg Tablet) 650 mg PO Q6H PRN PRN Reason: Headache/Pain, Scale 1-10 Last Admin: 10/30/24 21:39 Dose: 650 mg Al Hydroxide/Mg Hydroxide (Magnesium Hydrox/Alum Hydrox 30 Ml Oral.Susp) 30 ml PO Q6H PRN PRN Reason: Heartburn/Nausea Albuterol Sulfate (Albuterol Sulfate 90 Mcg 8 Gm Inhaler) 2 puff INHALE Q4H PRN PRN Reason: shortness of breath or wheezing Last Admin: 10/30/24 09:35 Dose: 2 puff Albuterol/Ipratropium (Albuterol/Iprat 2.5/0.5mg 3 Ml Ampul.Neb) 3 ml INHALE RQ4H WHILE AWAKE PRN PRN Reason: Shortness of Breath/Wheezing Cariprazine (Cariprazine Hcl 3 Mg Capsule) 3 mg PO DAILY [facility] Last Admin: 10/31/24 08:11 Dose: 3 mg Clonazepam (Clonazepam 1 Mg Tablet) 1 mg PO BID PRN PRN Reason: Anxiety Last Admin: 10/31/24 08:16 Dose: 1 mg Docusate Sodium (Docusate Sodium 100 Mg Capsule) 100 mg PO BID [facility] Last Admin: 10/31/24 08:12 Dose: 100 mg Fluoxetine HCl (Fluoxetine Hcl 20 Mg Capsule) 40 mg PO DAILY [facility] Last Admin: 10/31/24 08:11 Dose: 40 mg Fluticasone/Vilanterol (Fluticasone/Vilanterol 200/25 Blst.W.Dev) 2 puff INHALE RDAILY [facility] Last Admin: 10/31/24 08:11 Dose: 2 puff Guaifenesin (Guaifenesin La 600 Mg Tab.Er.12h) 600 mg PO BID PRN PRN Reason: Cough/congestion Last Admin: 10/30/24 18:55 Dose: 600 mg Hydroxyzine HCl (Hydroxyzine Hcl 25 Mg Tablet) 25 mg PO Q6H PRN PRN Reason: mild anxiety Loratadine (Loratadine 10 Mg Tablet) 10 mg PO DAILY [facility] Last Admin: 10/31/24 08:11 Dose: 10 mg Magnesium Hydroxide (Milk Of Magnesia 30 Ml Oral.Susp) 30 ml PO DAILY PRN PRN Reason: Constipation Montelukast Sodium (Montelukast Sodium 10 Mg Tablet) 10 mg PO BEDTIME [facility] Last Admin: 10/30/24 21:07 Dose: 10 mg Prednisone (Prednisone 20 Mg Tablet) 40 mg PO DAILY PRN PRN Reason: Wheezing Trazodone HCl (Trazodone Hcl 50 Mg Tablet) 50 mg PO BEDTIME [facility] Last Admin: 10/30/24 21:07 Dose: 50 mg Zolpidem Tartrate (Zolpidem Tartrate 5 Mg Tablet) 5 mg PO BEDTIME PRN PRN Reason: Insomnia Last Admin: 10/30/24 21:07 Dose: 5 mg Allergies Allergies Allergy/AdvReac Type Severity Reaction Status Date / Time shellfish derived Allergy Anaphylaxis Verified 04/29/23 16:39 Assessment & Plan Assessment & Plan (1) Schizophrenia: Status: Acute Code(s): F20.9 - Schizophrenia, unspecified (2) Depression: Status: Acute Code(s): F32.A - Depression, unspecified (3) PTSD (post-traumatic stress disorder): Status: Acute Code(s): F43.10 - Post-traumatic stress disorder, unspecified Plan patient presents with diagnosis of schizophrenia, depression and PTSD, unclear medication adherence and psychosocial stressors. Direct transfer from [facility]. He reported feeling depressed, lonely, paranoia and hallucinations increased with suicidal thoughts but these have since significantly improved since being in the hospital and submitted 3 day notice. Will maintain current regimen but will increase Vraylar to 3 mg. 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 social with Peruvian speaking peers. Patient focused on discharge; 3 day notice up on 11/01/24. Patient reports feeling good ; pt stated, I feel like the meds are helping. I'm not feeling anxious or depressed . denies SI/HI/VH/AH. Continue current tx plan. 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 social with Peruvian speaking peers. Patient continues to report feeling good ; focused on returning home. She reports sleeping well. denies SI/HI/VH/AH. 3 day notice up on 11/01/24. Patient reports she plans on following up with outpatient providers. Patient educated on: diagnosis and medication risk/benefits Reason for continued inpatient stay Substantial Risk for: stable for discharge Time Spent With Patient Time: Total time managing care of this patient today _20___ minutes.
[2024-10-31 20:00] VITALS: BP 132/68; PULSE 83; RESP 16; TEMP 36.7; O2SAT 97
[2024-10-31] MEDS: guaiFENesin LA 600 MG TAB.ER.12H PO (20:19)
[2024-11-01 07:46] VITALS: BP 113/73; PULSE 93; RESP 16; TEMP 36.7; O2SAT 95
[2024-11-01] MEDS: Fluticasone/Vilanterol 200/25 BLST.W.DEV 2 PUFF INHALE (08:39)
--- NOTE | 2024-11-01 08:53 | PM.PSYDC ---
DS: Providers Provider Date of Service: 11/01/24 Date of admission: 10/27/24 15:57 Date of discharge: 11/01/24 Primary care physician: Pamela Austin MD Attending physician on admission: Lex Cervantes Consults: 10/27/24 16:03 Consult to Hospitalist Routine Comment: Consulting Provider: [facility] [place] Hospitalists Reason For Exam: new admit, H&P Attending physician on discharge: David Flores Discharging clinician: Lucia Cain DS: Diagnosis Discharge Diagnosis (1) Schizophrenia: Status: Acute (2) Depression: Status: Acute (3) PTSD (post-traumatic stress disorder): Status: Acute DS: Medications Discharge Medications Home Medications: Home Medications ?Medication ?Instructions ?Recorded ?Confirmed budesonide-formoterol HFA 160 2 puff inhalation BID 10/27/24 10/27/24 mcg-4.5 mcg/actuation aerosol inhaler (Symbicort) clonazepam 1 mg tablet 1 mg PO BID PRN Anxiety 10/27/24 10/27/24 fluoxetine 40 mg capsule 40 mg PO DAILY 10/27/24 10/27/24 montelukast 10 mg tablet 10 mg PO BEDTIME 10/27/24 10/27/24 prednisone 20 mg tablet 40 mg PO DAILY PRN Wheezing 10/27/24 10/27/24 trazodone 50 mg tablet 50 mg PO BEDTIME 10/27/24 10/27/24 zolpidem 5 mg tablet 5 mg PO BEDTIME PRN Insomnia 10/27/24 10/27/24 Previous Rx's ?Medication ?Instructions ?Recorded albuterol sulfate 90 mcg/actuation 2 inh inhalation Q4-6H PRN 03/10/23 breath activated powder inhaler shortness of breath or wheezing #1 ea cariprazine 3 mg capsule (Vraylar) 3 mg PO DAILY 30 days #30 caps 10/31/24 docusate sodium 100 mg capsule 100 mg PO BID 30 days #60 caps 10/31/24 Mental Status Exam Mental Status Exam Narrative: Pt is alert and oriented; behavior is cooperative and calm; dressed in casual attire; mood is described as good ; eye contact appropriate; Speech is normal rate, volume and not pressured; thought process is organized; Thought content is on discharge; denies SI/HI/VH/AH. Data Data Completed and Pending Completed studies during hospitalization [Text1]: 10/28/24 07:48 WBC 8.0 RBC 4.54 Hgb 13.7 Hct 41.7 MCV 91.9 MCH 30.2 MCHC 32.9 RDW 13.5 Plt Count 224 MPV 10.5 Immature Gran % (Auto) 0.2 Neut % (Auto) 57.0 Lymph % (Auto) 31.8 Price % (Auto) 5.9 Eos % (Auto) 4.7 H Baso % (Auto) 0.4 Lymph # (Auto) 2.6 Price # (Auto) 0.5 Eos # (Auto) 0.4 Baso # (Auto) 0.0 Abs Immat Gran (auto) 0.02 Absolute Neuts (auto) 4.6 Absolute Nucleated RBC 0.000 Nucleated RBC % (auto) 0.0 Sodium 141 Potassium 4.2 Chloride 104 Carbon Dioxide 29 Anion Gap 12 BUN 12 Creatinine 0.73 Estim Creat Clear Calc 88.6 Estimated GFR > 60 Random Glucose 102 Estimat Average Glucose 123 Hemoglobin A1c % 5.9 Calcium 9.4 Total Bilirubin 0.3 AST 27 ALT 33 H Alkaline Phosphatase 90 Total Protein 7.7 Albumin 4.3 Triglycerides 129 Cholesterol 164 LDL Cholesterol, Calc 99 HDL Cholesterol 40 L DS: Summary Hospital Course Hospital Course: interview patient with fur scraper # [id number]. [facility] paperwork reviewed. Initial GI concerns. Then suicidal thoughts. Labs unremarkable. Tox screen negative. Medications included Ambien, trazodone, Prozac, Vraylar. Observed in the milieu getting on well with others and also on the telephone, eating etc.. Reports wanting help with depression as she had been feeling lonely and considered overdosing. Also reports he wants to be discharged soon and put in a 3 day notice as she reports she has a refrigerator arriving at her apartment on Wednesday. Aware 3 day notice would Wednesday. History is a little unclear but it does seem the patient was getting support from her daughter up until April or May of this year around medication adherence and living environment. Patient reports that changed in July and at times she can forget to take her medications. Endorses recently feeling lonely, no energy or motivation, some sleep problems, getting more paranoid and looking at the windows and she fears she may be in danger from neighbors, also hearing noises and voices saying that she is nobody and that she should kill herself and is about mother but reports he has not heard these in a number of days. Reports having suicidal thoughts of overdosing but also reports these have resolved since being in the hospital. Has a nurse practitioner at [facility]. Last inpatient episode was in May 2024. agreed to increase dose of Vraylar. patient presents with diagnosis of schizophrenia, depression and PTSD, unclear medication adherence and psychosocial stressors. Direct transfer from [facility]. He reported feeling depressed, lonely, paranoia and hallucinations increased with suicidal thoughts but these have since significantly improved since being in the hospital and submitted 3 day notice. Will maintain current regimen but will increase Vraylar to 3 mg. heart doctor present. Active on unit. social with [place] speaking peers. Patient focused on discharge; 3 day notice up on 11/01/24. Patient reports feeling good ; pt stated, I feel like the meds are helping. I'm not feeling anxious or depressed . denies SI/HI/VH/AH. Continue current tx plan. heart doctor present. Active on unit. social with [place] speaking peers. Patient continues to report feeling good ; focused on returning home. She reports sleeping well. denies SI/HI/VH/AH. 3 day notice up on 11/01/24. Patient reports she plans on following up with outpatient providers. Status at Discharge Cognitive/behavioral status at discharge: Patient has insight and demonstrates good judgment in terms of wanting to pursue treatment. Patient has a safety plan that includes presenting to the closest ER or calling 911 if feeling unsafe. Functional status at discharge: independent ambulation Overall status at discharge: patient is back to baseline Time Spent with Patient Time attestation: Total time managing care of this patient today __20__ minutes. Time spent: Less than 30 minutes Discharge Plan Discharge Anticipated Discharge Date/Time: 11/01/24 10:00 Patient Disposition: Home, Self-Care Discharge Diagnosis: Schizophrenia, PTSD Referrals: Psych Prescriber: Margaret Thurston ([facility]) [Other] - 11/23/24 8:30 am Referral Note: [facility] Therapist: Maribel Hou ([facility]) [Other] - 11/02/24 10:30 am Referral Note: La tanmay es en persona en [facility]. Pamela Austin MD [Primary Care Provider, Internal Medicine] - 1 Week Referral Note: Se realiz? mario solicitud de tanmay de seguimiento y la oficina lo llamar? directamente dentro de dos d?as h?opal para programarla. Discharge Medications: New docusate sodium 100 mg Capsule 100 mg PO BID 30 Days Qty: 60 0RF Vraylar 3 mg Capsule 3 mg PO DAILY 30 Days Qty: 30 0RF Continued albuterol sulfate 90 mcg/actuation aerosol powdr breath activated 2 inh inhalation Q4-6H PRN (Reason: shortness of breath or wheezing) Qty: 1 0RF fluoxetine 40 mg capsule 40 mg PO DAILY trazodone 50 mg tablet 50 mg PO BEDTIME clonazepam 1 mg tablet 1 mg PO BID PRN (Reason: Anxiety) montelukast 10 mg tablet 10 mg PO BEDTIME zolpidem 5 mg tablet 5 mg PO BEDTIME PRN (Reason: Insomnia) prednisone 20 mg tablet 40 mg PO DAILY PRN (Reason: Wheezing) budesonide-formoterol [Symbicort] 160-4.5 mcg/actuation Hfa Aerosol Inhaler 2 puff INHALATION BID Discontinued Vraylar 1.5 mg capsule 1.5 mg PO DAILY Discharge Orders: Discharge Order (Routine); Ordered 11/01/24 Ordered By: Lucia Cain Diet: Regular diet Activity on Discharge: As tolerated Stand Alone Forms: Patient Portal Discharge page, Community Support Print Language: [place] Care Plan Goals: Maintain mood and safe behaviors Take medications as prescribed Practice coping skills Continue with outpatient providers and reach out to them as needed Health Concerns: Mood stability and behaviors Plan of Treatment: Follow up with your PCP, psychiatric provider and other outpatient providers regarding above concerns Take medications as prescribed Assessment: Patient has insight and demonstrates good judgment in terms of wanting to pursue treatment. Patient has a safety plan that includes presenting to the closest ER or calling 911 if feeling unsafe. Discharge Date/Time: 11/01/24 10:07
== END 2024-11-01 10:07 | disposition home or self-care (01) | DRG 750 ==
PROVIDERS: Nurse Practitioner Family; Admitting Provider Psychiatry & Neurology Psychiatry; PCP Pediatrics; Responsible Provider Registered Nurse; Visit Provider Psychiatry & Neurology Psychiatry
DX: F20.9 Schizophrenia, unspecified (principal); R45.851 Suicidal ideations; I10 Essential (primary) hypertension; F32.A Depression, unspecified; J30.9 Allergic rhinitis, unspecified; F43.10 Post-traumatic stress disorder, unspecified; J45.20 Mild intermittent asthma, uncomplicated; Z79.52 Long term (current) use of systemic steroids; Z79.899 Other long term (current) drug therapy
CPT/HCPCS: 36415; 80053; 80061; 83036; 85025; 93005

== ENCOUNTER → 2024-10-27 15:57 | Outpatient (BNV) | payer OTHER, SELFPAY | PROVIDERS: Admitting Provider Psychiatry & Neurology Psychiatry; PCP Pediatrics; Visit Provider Internal Medicine | DX: R94.31 Abnormal electrocardiogram [ECG] [EKG] (principal); I10 Essential (primary) hypertension | CPT/HCPCS: 93010 ==

== ENCOUNTER → 2024-10-27 15:57 | Outpatient (BNV) | payer OTHER, SELFPAY | PROVIDERS: Admitting Provider Psychiatry & Neurology Psychiatry; PCP Pediatrics; Visit Provider Psychiatry & Neurology Psychiatry | DX: F20.9 Schizophrenia, unspecified (principal); F32.1 Major depressive disorder, single episode, moderate; F43.11 Post-traumatic stress disorder, acute | CPT/HCPCS: 99232 ==

== ENCOUNTER → 2024-10-27 15:57 | Outpatient (BNV) | payer OTHER, SELFPAY | PROVIDERS: Admitting Provider Psychiatry & Neurology Psychiatry; PCP Pediatrics; Visit Provider Nurse Practitioner Family | DX: I10 Essential (primary) hypertension (principal); J45.20 Mild intermittent asthma, uncomplicated; J30.9 Allergic rhinitis, unspecified; E66.812 Obesity, class 2; Z68.36 Body mass index [BMI] 36.0-36.9, adult; M79.602 Pain in left arm; G89.29 Other chronic pain | CPT/HCPCS: 99223 ==